=== PATIENT | female | born 1945 | race Caucasian/White ===

== ENCOUNTER 2017-06-23 12:53 | Emergency (ER) | payer OTHER ==
[~2017-06-23] VITALS: Ht 170.1 cm; Wt 89.4 kg
[2017-06-23 14:08] LABS: BASO % 0.1 % (0.0-1.0); EOS # 0.1 10*3/uL (0.0-0.4); EOS % 1.5 % (1.0-4.0); HEMATOCRIT 31.6 % (37.0-47.0); HEMOGLOBIN 9.5 g/dl (12.0-16.0); LYMPH # 3.3 10*3/uL (1.3-4.4); LYMPH % 45.5 % (27.0-41.0); MEAN CELL VOLUME 99.7 fl (81.0-99.0); MEAN CORPUSCULAR HGB CONC 30.1 g/dl (33.0-37.0); MEAN PLATELET VOLUME 11.5 fl (9.6-12.3); MONO # 0.4 10*3/uL (0.1-1.0); NEUT # 3.3 10*3/uL (2.3-7.9); NEUT % 46.6 % (47.0-73.0); NUCLEATED RED BLOOD CELL 0.1 10*3/uL (0.0-0.0); PLATELET COUNT AUTOMATED 315 10*3/uL (130-400); RED BLOOD COUNT 3.17 10*6/uL (4.10-5.10); RED CELL DISTRI WIDTH 19.7 % (0-14.5); WHITE BLOOD COUNT 7.2 10*3/uL (4.8-10.8)
[2017-06-23 14:18] LABS: ACT PARTIAL THROMBO TIME 22.3 SECONDS (20.8-31.5); INTERNATIONAL NORM RATIO 0.9 (2.0-3.5)
[2017-06-23 14:28] LABS: ALBUMIN 2.7 gm/dl (3.1-4.5); ALKALINE PHOSPHATASE 107 U/L (45-117); BUN 7 mg/dl (7-24); CHLORIDE 95 mmol/L (98-107); CREATININE 0.67 mg/dL (0.55-1.02); POTASSIUM 3.9 mmol/L (3.5-5.1); SGOT/AST 13 IU/L (3-35); SGPT/ALT 10 U/L (12-78); SODIUM 133 mmol/L (136-145); TOTAL PROTEIN 7.7 gm/dL (6.4-8.2)
== END 2017-06-23 16:25 | disposition short-term general hospital (02) ==
LOC: ED 12:53
PROVIDERS: Emergency Medicine
DX: T81.31XA Disruption of external operation (surgical) wound, not elsewhere classified, initial encounter (principal); T81.4XXA Infection following a procedure, initial encounter

== ENCOUNTER 2017-07-14 15:12 | Inpatient (IN) | payer OTHER ==
[~2017-07-14] VITALS: Ht 162.5 cm; Wt 80.9 kg
--- NOTE | ~2017-07-14 | CON ---
[place], [place] REPORT OF CONSULTATION NAME: OG SCOTT UNIT #: [id number] ROOM: 504 DOCTOR: LOCO KAY MDDURAN BIRTHDATE: [birth year] DOS: 07/16/2017 CONSULTATION REQUESTED BY: Hospitalist services. REASON FOR CONSULTATION: To assess the patient's current abnormal findings on CT scan of the chest. HISTORY OF PRESENT ILLNESS: A 71-year-old white female known to me from the past. She has a significant complex history from the past. The patient had been admitted at [facility] as the patient tripped over resulting in wound on the back. She had developed significant necrotic wound, also developed gangrene and necrotizing fasciitis. The patient has been treated with several surgeries as well and has a rectal surgery as well as a subsequent colostomy performed as well. She remained in [facility], possibly for couple of months and sent to the local nursing facility for inpatient rehabilitation. As the patient was getting physical therapy, she felt significant dizziness with near syncopal episode. The patient has been sent to the hospital by the EMS. The patient denies any symptoms of coughing, chest pain or shortness of breath at this time. Denies symptoms of hemoptysis. The patient has been known with history of blood pressure and is also low in the nursing facility described in the 50s. The patient has been currently admitted to the hospital for further assessment. She has a CT scan of the head done as well as a CT of the chest done as well on admission. She has been admitted to the hospital on 07/15/2016. REVIEW OF SYSTEMS: CONSTITUTIONAL: She does complain of general weakness, fatigue that persisted. Denies symptoms of fever or chills. EYES: Denies any burning, redness, tenderness or diplopia. EARS, NOSE, THROAT: No symptoms of discharge, earache, postnasal drainage or epistaxis. CARDIOVASCULAR: Denies angina pain, edema or pain of the lower extremities or palpitations. GASTROINTESTINAL: No symptoms of dysphagia, nausea, vomiting, diarrhea, abdominal pain, hematemesis or melena. Reported significant weight loss during the stay at the [facility]. SKIN: Denies any lesions or rashes. MUSCULOSKELETAL: Without any acute deformities. CENTRAL NERVOUS SYSTEM: General weakness and fatigue were noted. Cranial nerves 2-12 intact. Remaining systems were reviewed. They were noted all negative. PAST MEDICAL HISTORY: Reported as: 1. Type 2 diabetes mellitus. 2. Hypothyroidism. 3. Anxiety and depression. 4. Necrotizing fascitis and infected wound in the back and the pelvic area. 5. History of spinal stenosis. 6. Surgical wound dehiscence as well. [place], [place] REPORT OF CONSULTATION NAME: OG SCOTT UNIT #: [id number] ROOM: [facility] DOCTOR: SONIYA SCOTT MDM BIRTHDATE: [birth year] PAST SURGICAL HISTORY: Reported: 1. Oophorectomy. 2. Lumbar fusion. 3. Appendectomy. 4. Colostomy. 5. Complete hysterectomy. 6. History of appendectomy. SOCIAL HISTORY: The patient stated that she is , has no children, lives at home. Nonsmoker lifetime. Denies history of alcohol use or any illicit drugs. FAMILY HISTORY: The patient's father due to complication related to the heart disease at the age of 70 years. The mother at the age 48 due to complication related to the untreated metastatic breast cancer. MEDICATIONS: The medications recorded on admission from the nursing facility were use of aspirin, Colace, Amaryl, lisinopril, Ativan, Percocet, pravastatin, Flomax, Effexor, Coumadin and other p.r.n. medications. DRUG ALLERGIES: Noted for no known drug allergies. PHYSICAL EXAMINATION: GENERAL: This is a 71-year-old female who has been currently noted to be awake and alert, lying in the bed without any acute distress at time of the examination this morning. Her height was recorded 5 feet 4 inches, weight of 178 pounds, BMI 30.6. VITAL SIGNS: Noted as temperature 99.2 degree Fahrenheit to normal temperature, respiratory rate 18-20, heart rate of 111-88, blood pressure 129/65-115/59. Intake is 1820/2.95 L, negative 1120 mL. Pulse oxygen saturation on room air recorded 94% saturation on admission and later on. HEENT: Head was atraumatic. Eyes nonicterus. NECK: Supple. Decreased posterior pharyngeal space, high tongue base. Oral mucosa is moist. CARDIOVASCULAR: S1, S2 audible. LUNGS: Noted clear to auscultation bilaterally. ABDOMEN: Soft. Mild to moderate obesity. Colostomy present. Bowel sounds present. There was no tenderness. GENITOURINARY: Cranial nerves 2-12 intact. No focal deficits. SKIN: No lesions or rashes on visible skin. MUSCULOSKELETAL: Does not show any deformities. LABORATORY DATA: Troponin on 07/14 were noted, all 3 sets negative. The CMP on 07/14; glucose 160, BUN and creatinine was normal, sodium 128, chloride of 93. The remaining electrolytes were normal. ProBNP 576, mildly elevated and WBC count 4.0, hemoglobin 9.1, platelet count was normal. CBC on 07/14; hemoglobin 9.6 and hematocrit 31.6. The remaining CBC was normal. CMP on 07/15; normal BUN and creatinine. Sodium 134. Blood culture from 07/14/2016 does not show any bacterial growth at this time. Preliminary final culture results were pending. BMP this morning; normal BUN and creatinine today, sodium 132, [place], [place] REPORT OF CONSULTATION NAME: OG SCOTT UNIT #: [id number] ROOM: [facility] DOCTOR: SONIYA SCOTT MDM BIRTHDATE: [birth year] chloride 97. The echocardiogram that was done on 07/15/[address] Ridley reported as a normal left ventricle ejection fraction with mild diastolic dysfunction reported. Ejection fraction was described as 70%, was noted with findings of a paulino to white matter differentiation not well delineated in the right hemisphere as compared to the left. This may be related to possibly decrease of acute large infarct. MRI was recommended and clinically indicated as per radiologist's report. The chest x-ray that was done on 07/14/2016 showed widening of the mediastinal. The CT scan of the chest that was done with intravenous contrast on 06/13 on admission was reviewed. There was no evidence of pulmonary embolism noted on the CT scan of the chest. Massive lymphadenopathy was present in the mediastinum as well as in the right peritracheal area with possibility of mass and lesion in the right hilum can be completely excluded as well. Narrowing of the right main stem bronchus and the right lower lobe main stem bronchus was also noted, most likely to current adenopathy. The parenchymal windows of the lungs were reviewed as well and he does not show any discrete pulmonary nodules. There was no past studies available to compare the current problems chronicity. IMPRESSION: 1. 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 2. Recent fall with extensive history resulting in necrotizing fasciitis in the pelvic area with wound dehiscence. The patient current wound management has been continued. 3. Significant body weakness as well. 4. Suspected protein-calorie malnutrition as well. There was no past history of tobacco use reported and there were no findings consistent with either chronic obstructive pulmonary disease or bronchial asthma. 5. History of type 2 diabetes mellitus as well. PLAN AND RECOMMENDATION: The patient has been noted with very complex history that would require immediate workup to make appropriate diagnosis of the current suspected malignancy with a mediastinoscopy as well as to obtain the MRI of the head to rule out metastatic disease to the brain. The patient should be started on appropriate treatment after establishing the confirmatory diagnosis with the tissue biopsy. PLAN OF MANAGEMENT: The patient was recommended about transfer back to the [facility] for further diagnostic workup and management. Continue current medical management of the hyponatremia for the paraneoplastic syndromes as well. Supportive therapy, plan of management to be continued with the other therapy as previously ordered will be continued. Usual care. Other additional treatment plan and management as well. The patient was told about the transfer to another facility and she was agreeable to that. Further management as well as transfer has been discussed with the nurse practitioner, Skyla Bajwa, personally as well. She will be making the arrangement for transfer to the other outlying facility for further appropriate workup [place], [place] REPORT OF CONSULTATION NAME: OG SCOTT UNIT #: [id number] ROOM: 504 DOCTOR: DURAN SCOTT MD BIRTHDATE: [birth year] consideration. Thanks for allowing me to participate in the care of this patient. DURAN ADAN MD CM:CONSTR:REPORT OF CONSULTATION 1300 07/16/17 2311 interface
[2017-07-14 15:20] VITALS: BP 99/33
[2017-07-14 15:24] VITALS: BP 99/33
[2017-07-14] MEDS ORDERED: COUMADIN5 M2 PO (15:36)
[2017-07-14] MEDS ORDERED: ATIVAN1 MG PO (15:37)
[2017-07-14] MEDS ORDERED: ASPIR LOW81 MG PO (15:37)
[2017-07-14] MEDS ORDERED: GOOD SENSE PAI650 M1 PO (15:38)
[2017-07-14] MEDS ORDERED: DULCOLAX STOOL100 MG PO (15:39)
[2017-07-14] MEDS ORDERED: AMARYL2 MG PO (15:40)
[2017-07-14] MEDS ORDERED: LISINOPRIL5 MG PO (15:41)
[2017-07-14] MEDS ORDERED: LIDOCAINE HCL 330 M1 T (15:41)
[2017-07-14] MEDS ORDERED: EFFEXOR-XR150 MG PO (15:42)
[2017-07-14] MEDS ORDERED: PRAVACHOL40 MG PO (15:42)
[2017-07-14] MEDS ORDERED: PERCOCET 5-3251 EACH PO (15:42)
[2017-07-14] MEDS ORDERED: TAMSULOSIN HCL0.4 MG PO (15:43)
[2017-07-14] MEDS ORDERED: SANTYL30 GM T (15:43)
[2017-07-14 16:14] LABS: BASO % 0.3 % (0.0-1.0); EOS # 0.1 10*3/uL (0.0-0.4); EOS % 2.1 % (1.0-4.0); HEMATOCRIT 31.6 % (37.0-47.0); HEMOGLOBIN 9.6 g/dl (12.0-16.0); LYMPH # 1.4 10*3/uL (1.3-4.4); LYMPH % 20.9 % (27.0-41.0); MEAN CELL VOLUME 95.5 fl (81.0-99.0); MEAN CORPUSCULAR HGB CONC 30.4 g/dl (33.0-37.0); MEAN PLATELET VOLUME 11.2 fl (9.6-12.3); MONO # 0.4 10*3/uL (0.1-1.0); MONO % 5.4 % (3.0-9.0); NEUT # 4.8 10*3/uL (2.3-7.9); NEUT % 70.9 % (47.0-73.0); NUCLEATED RED BLOOD CELL 0.3 % (0.0-0.0); PLATELET COUNT AUTOMATED 256 10*3/uL (130-400); RED BLOOD COUNT 3.31 10*6/uL (4.10-5.10); RED CELL DISTRI WIDTH 18.6 % (0-14.5); WHITE BLOOD COUNT 6.8 10*3/uL (4.8-10.8)
[2017-07-14 16:31] LABS: ALKALINE PHOSPHATASE 101 U/L (45-117); BUN 14 mg/dl (7-24); CHLORIDE 93 mmol/L (98-107); CREATININE 0.62 mg/dL (0.55-1.02); LIPASE 152 U/L (73-393); SGOT/AST 9 IU/L (3-35); SGPT/ALT 15 U/L (12-78); SODIUM 128 mmol/L (136-145); TOTAL PROTEIN 7.7 gm/dL (6.4-8.2)
[2017-07-14 16:36] LABS: TROPONIN I < 0.015 ng/ml (<0.045)
[2017-07-14 17:21] LABS: BILIRUBIN NEGATIVE (NEGATIVE); BLOOD 2+ (NEGATIVE); CLARITY SL CLOUDY (CLEAR); COLOR YELLOW (YELLOW); GLUCOSE NEGATIVE (NEGATIVE); KETONE TRACE (NEGATIVE); LEUKO ESTERASE TRACE (NEGATIVE); NITRITE NEGATIVE (NEGATIVE); SPECIFIC GRAVITY 1.015 (1.005-1.030); UROBILINOGEN 0.2 E.U./dl (0.2-1.0)
[2017-07-14 17:35] LABS: HYALINE CAST 41-50
[2017-07-14 17:36] LABS: BACTERIA 3+
[2017-07-14 17:39] LABS: RBC 21-30 rbc/hpf (0-2)
[2017-07-14 20:00] VITALS: BP 100/40
[2017-07-15] VITALS: BP 100/40
[2017-07-15 07:12] LABS: BASO % 0.2 % (0.0-1.0); EOS # 0.1 10*3/uL (0.0-0.4); EOS % 3.5 % (1.0-4.0); HEMATOCRIT 30.8 % (37.0-47.0); HEMOGLOBIN 9.1 g/dl (12.0-16.0); LYMPH # 1.5 10*3/uL (1.3-4.4); LYMPH % 38.2 % (27.0-41.0); MEAN CELL VOLUME 96.9 fl (81.0-99.0); MEAN CORPUSCULAR HGB 28.6 pg (27.0-31.0); MEAN CORPUSCULAR HGB CONC 29.5 g/dl (33.0-37.0); MEAN PLATELET VOLUME 11.6 fl (9.6-12.3); MONO # 0.3 10*3/uL (0.1-1.0); MONO % 8.2 % (3.0-9.0); NEUT % 49.7 % (47.0-73.0); PLATELET COUNT AUTOMATED 254 10*3/uL (130-400); RED BLOOD COUNT 3.18 10*6/uL (4.10-5.10); RED CELL DISTRI WIDTH 18.6 % (0-14.5)
[2017-07-15 07:28] LABS: INTERNATIONAL NORM RATIO 1.1 (2.0-3.5)
[2017-07-15 07:46] LABS: ALBUMIN 2.8 gm/dl (3.1-4.5); ALKALINE PHOSPHATASE 95 U/L (45-117); BUN 9 mg/dl (7-24); CHLORIDE 98 mmol/L (98-107); CHOLESTEROL 184 mg/dL (<200); CREATININE 0.44 mg/dL (0.55-1.02); FREE T4 1.04 ng/dl (0.76-1.46); HDL CHOLESTEROL 39 mg/dl (40-60); LDL CHOLESTEROL 98 mg/dL (9-159); POTASSIUM 3.8 mmol/L (3.5-5.1); SGOT/AST 11 IU/L (3-35); SGPT/ALT 12 U/L (12-78); SODIUM 134 mmol/L (136-145); TOTAL PROTEIN 7.1 gm/dL (6.4-8.2); TRIGLYCERIDES 234 mg/dl (<150); VLDL CHOLESTEROL 47 mg/dL (6-40)
[2017-07-15] MEDS ORDERED: MIRALAX17 GM PO (07:47)
[2017-07-15] MEDS ORDERED: MILK OF MA400 MG/5 M PO (07:47)
[2017-07-15] MEDS ORDERED: ENDOCET 5-3251 EACH PO (07:48)
[2017-07-15] MEDS ORDERED: SENNA8.6 MG PO (07:49)
[2017-07-15 08:00] VITALS: BP 102/74; BP 143/73
[2017-07-15 10:48] LABS: VITAMIN D, 25-HYDROXY 22.2 ng/mL (30-100)
[2017-07-15 12:00] VITALS: BP 129/65
[2017-07-15 16:00] VITALS: BP 119/50
[2017-07-15 20:00] VITALS: BP 112/41
[2017-07-16] VITALS: BP 113/56
[2017-07-16 07:06] LABS: BASO % 0.6 % (0.0-1.0); EOS # 0.1 10*3/uL (0.0-0.4); EOS % 3.4 % (1.0-4.0); HEMATOCRIT 28.9 % (37.0-47.0); HEMOGLOBIN 8.7 g/dl (12.0-16.0); LYMPH # 1.6 10*3/uL (1.3-4.4); LYMPH % 45.7 % (27.0-41.0); MEAN CELL VOLUME 96.3 fl (81.0-99.0); MEAN CORPUSCULAR HGB CONC 30.1 g/dl (33.0-37.0); MEAN PLATELET VOLUME 11.1 fl (9.6-12.3); MONO # 0.3 10*3/uL (0.1-1.0); NEUT # 1.5 10*3/uL (2.3-7.9); PLATELET COUNT AUTOMATED 251 10*3/uL (130-400); RED CELL DISTRI WIDTH 18.6 % (0-14.5); WHITE BLOOD COUNT 3.5 10*3/uL (4.8-10.8)
[2017-07-16 07:31] LABS: ALBUMIN 2.8 gm/dl (3.1-4.5); ALKALINE PHOSPHATASE 92 U/L (45-117); BUN 8 mg/dl (7-24); CHLORIDE 97 mmol/L (98-107); CREATININE 0.44 mg/dL (0.55-1.02); SGOT/AST 7 IU/L (3-35); SGPT/ALT 11 U/L (12-78); SODIUM 132 mmol/L (136-145); TOTAL PROTEIN 6.9 gm/dL (6.4-8.2)
[2017-07-16 08:00] VITALS: BP 119/59
== END 2017-07-16 17:00 | disposition short-term general hospital (02) | DRG 920 ==
LOC: ED 15:12 → 5E 18:33 → EDHOLD 18:33 → 5E 18:44
PROVIDERS: Emergency Medicine; Hospitalist; Registered Nurse
DX: T81.89XA Other complications of procedures, not elsewhere classified, initial encounter (principal); E87.1 Hypo-osmolality and hyponatremia; I95.9 Hypotension, unspecified; E11.65 Type 2 diabetes mellitus with hyperglycemia; R55 Syncope and collapse; E78.00 Pure hypercholesterolemia, unspecified; R59.0 Localized enlarged lymph nodes; E55.9 Vitamin D deficiency, unspecified; I10 Essential (primary) hypertension; M19.90 Unspecified osteoarthritis, unspecified site; F32.9 Major depressive disorder, single episode, unspecified; Z90.721 Acquired absence of ovaries, unilateral; Z90.49 Acquired absence of other specified parts of digestive tract; Z98.1 Arthrodesis status; Z93.3 Colostomy status; Z90.710 Acquired absence of both cervix and uterus; Z82.49 Family history of ischemic heart disease and other diseases of the circulatory system; Z80.3 Family history of malignant neoplasm of breast; Z79.899 Other long term (current) drug therapy; Z79.82 Long term (current) use of aspirin

== ENCOUNTER → 2017-10-22 | Outpatient (CLI) | payer OTHER ==
[~2017-10-22] MED LIST: AMARYL2 MG PO; ASPIR LOW81 MG PO; ATIVAN1 MG PO; COUMADIN5 M2 PO; DULCOLAX STOOL100 MG PO; EFFEXOR-XR150 MG PO; ENDOCET 5-3251 EACH PO; GOOD SENSE PAI650 M1 PO; LIDOCAINE HCL 330 M1 T; LISINOPRIL5 MG PO; MILK OF MA400 MG/5 M PO; MIRALAX17 GM PO; PERCOCET 5-3251 EACH PO; PRAVACHOL40 MG PO; SANTYL30 GM T; SENNA8.6 MG PO; TAMSULOSIN HCL0.4 MG PO
--- NOTE | ~2017-10-22 | PF ---
[place], [place] PULMONARY FUNCTION TEST NAME: OG SCOTT UNIT #: [id number] ROOM: DOCTOR: LOCO KAY MD,DURAN BIRTHDATE: [birth year] DOS: 10/22/2017 HISTORY: The patient recorded as a 72-year-old female, height of 66 inches, weight 179 pounds, BMI 28.9. Testing was ordered by Dr. Giacomo Edgar. The testing was done for the patient with history of Hodgkin lymphoma. The patient has not reported any abnormal respiratory symptoms. There were no past history of tobacco use. SPIROMETRY: The FVC was recorded 2.10 liters, 68% predicted value, mild to moderate decreased. FEV1 was recorded 1.70 liters, 72% predicted value, mildly decreased. The ratio of FEV1/FVC recorded 78% post-bronchodilator. Minimal improvement noted for the patient, but not noted significant improvement after bronchodilators based on the ATS criteria. Flow volume loop was suggestive of mild obstructive airway pattern. The lung volumes, the thoracic gas volume recorded 99%, residual volume of 111%, total lung capacity 85%. The patient's lung diffusion recorded 58% without correction of carbon monoxide or hemoglobin values. The patient's airway resistance and passive conductance noted mildly abnormal, partial improvement post-bronchodilator test. FINAL IMPRESSION: The current test for the patient suggestive of possible diagnosis of mild reversible obstructive lung disease as bronchial asthma would be considered. DURAN ADAN MD CM:PFREPORT:PULMONARY FUNCTION TEST [id number] DURAN KAY MD
== END | disposition home or self-care (01) ==
LOC: CP 12:15
DX: C81.90 Hodgkin lymphoma, unspecified, unspecified site (principal); D64.9 Anemia, unspecified

== ENCOUNTER → 2023-11-17 | Outpatient (CLI) | payer MEDICARE ==
[~2023-11-17] MED LIST changes: +ACID REDUCER15 MG PO; +ATIVAN0.5 MG PO; +CALCIUM500 M1 PO; +LISINOPRIL2.5 MG PO; +MAGNESIUM400 M1 PO; +SEPTDS PO; +VITAMIN D325 MCG PO
[2023-11-17 12:20] LABS: BUN 19 mg/dl (9-23); CHLORIDE 98 mmol/L (98-107); POTASSIUM 4.6 mmol/L (3.4-5.1)
== END | disposition home or self-care (01) ==
LOC: LAB 01:45 → WOUNDCARE 01:45
PROVIDERS: Internal Medicine; ATTEND Nurse Practitioner Family
DX: E87.1 Hypo-osmolality and hyponatremia (principal)

== ENCOUNTER → 2023-11-24 | Outpatient (CLI) | payer MEDICARE | END | disposition home or self-care (01) | LOC: WOUNDCARE 02:01 | PROVIDERS: ATTEND Nurse Practitioner Family | DX: T81.89XD Other complications of procedures, not elsewhere classified, subsequent encounter (principal); E11.622 Type 2 diabetes mellitus with other skin ulcer; L98.422 Non-pressure chronic ulcer of back with fat layer exposed; E11.65 Type 2 diabetes mellitus with hyperglycemia; L02.91 Cutaneous abscess, unspecified; D53.9 Nutritional anemia, unspecified; E78.00 Pure hypercholesterolemia, unspecified; E55.9 Vitamin D deficiency, unspecified; M48.00 Spinal stenosis, site unspecified; M88.9 Osteitis deformans of unspecified bone; M19.90 Unspecified osteoarthritis, unspecified site; E44.0 Moderate protein-calorie malnutrition; F32.A Depression, unspecified; Z68.28 Body mass index [BMI] 28.0-28.9, adult; Z90.710 Acquired absence of both cervix and uterus; Z90.49 Acquired absence of other specified parts of digestive tract; Z79.899 Other long term (current) drug therapy; Y83.8 Other surgical procedures as the cause of abnormal reaction of the patient, or of later complication, without mention of misadventure at the time of the procedure ==

== ENCOUNTER → 2023-12-01 | Outpatient (CLI) | payer MEDICARE | END | disposition home or self-care (01) | LOC: WOUNDCARE 02:26 | PROVIDERS: ATTEND Nurse Practitioner Family | DX: T81.89XD Other complications of procedures, not elsewhere classified, subsequent encounter (principal); E11.622 Type 2 diabetes mellitus with other skin ulcer; L98.422 Non-pressure chronic ulcer of back with fat layer exposed; E11.65 Type 2 diabetes mellitus with hyperglycemia; L02.91 Cutaneous abscess, unspecified; D53.9 Nutritional anemia, unspecified; M48.00 Spinal stenosis, site unspecified; M88.9 Osteitis deformans of unspecified bone; M19.90 Unspecified osteoarthritis, unspecified site; E44.0 Moderate protein-calorie malnutrition; F32.A Depression, unspecified; Z68.28 Body mass index [BMI] 28.0-28.9, adult; Z90.710 Acquired absence of both cervix and uterus; Z90.49 Acquired absence of other specified parts of digestive tract; Z79.899 Other long term (current) drug therapy; Y83.8 Other surgical procedures as the cause of abnormal reaction of the patient, or of later complication, without mention of misadventure at the time of the procedure ==

== ENCOUNTER → 2023-12-09 | Outpatient (CLI) | payer MEDICARE ==
[~2023-12-09] MED LIST changes: -AMARYL2 MG PO; +CETIRIZINE10 MG PO; +GLIMEPIRIDE2 MG PO; +PANTOPRAZOLE SO40 MG PO
== END | disposition home or self-care (01) ==
LOC: WOUNDCARE 00:59
PROVIDERS: ATTEND Nurse Practitioner Family
DX: T81.89XD Other complications of procedures, not elsewhere classified, subsequent encounter (principal); E11.622 Type 2 diabetes mellitus with other skin ulcer; L98.422 Non-pressure chronic ulcer of back with fat layer exposed; E11.65 Type 2 diabetes mellitus with hyperglycemia; L02.91 Cutaneous abscess, unspecified; D53.9 Nutritional anemia, unspecified; M48.00 Spinal stenosis, site unspecified; M88.9 Osteitis deformans of unspecified bone; M19.90 Unspecified osteoarthritis, unspecified site; E44.0 Moderate protein-calorie malnutrition; F32.A Depression, unspecified; Z68.28 Body mass index [BMI] 28.0-28.9, adult; Z90.710 Acquired absence of both cervix and uterus; Z90.49 Acquired absence of other specified parts of digestive tract; Z79.899 Other long term (current) drug therapy; Y83.8 Other surgical procedures as the cause of abnormal reaction of the patient, or of later complication, without mention of misadventure at the time of the procedure

== ENCOUNTER 2023-12-22 12:03 | Emergency (ER) | payer MEDICARE ==
[~2023-12-22] VITALS: Ht 167.6 cm; Wt 78.9 kg
[2023-12-22 12:51] LABS: HEMATOCRIT 24.4 % (37.0-47.0); MEAN CELL VOLUME 105.6 fl (81.0-99.0); MEAN CORPUSCULAR HGB CONC 30.3 g/dl (33.0-37.0); MEAN PLATELET VOLUME 12.4 fl (9.6-12.3); NUCLEATED RED BLOOD CELL 0.1 10*3/uL (0.0-0.0); NUCLEATED RED BLOOD CELL 2.5 % (0.0-0.0); PLATELET COUNT AUTOMATED 170 10*3/uL (130-400); RED BLOOD COUNT 2.31 10*6/uL (4.10-5.10); RED CELL DISTRI WIDTH 26.6 % (0-14.5); WHITE BLOOD COUNT 2.4 10*3/uL (4.8-10.8)
[2023-12-22 12:52] LABS: MANUAL DIFF REFLEX YES
[2023-12-22 13:10] LABS: ALKALINE PHOSPHATASE 85 U/L (46-116); BUN 11 mg/dl (9-23); CHLORIDE 102 mmol/L (98-107); POTASSIUM 4.6 mmol/L (3.4-5.1); TOTAL PROTEIN 6.8 gm/dL (6.0-8.0)
[2023-12-22 13:12] LABS: SGPT/ALT < 7 U/L (5-49)
[2023-12-22 13:38] LABS: TOTAL CELLS COUNTED 100 #CELLS
[2023-12-22 13:39] LABS: OVALOCYTES FEW; PLATELET SUFFICIENCY NORMAL (NORMAL); POLYCHROMASIA SLIGHT; SCHISTOCYTES FEW
== END 2023-12-22 14:39 | disposition home or self-care (01) ==
LOC: ED 12:03
PROVIDERS: Internal Medicine
DX: D64.9 Anemia, unspecified (principal); Z90.49 Acquired absence of other specified parts of digestive tract; Z90.710 Acquired absence of both cervix and uterus; Z98.890 Other specified postprocedural states; Z79.899 Other long term (current) drug therapy

== ENCOUNTER → 2023-12-29 | Outpatient (CLI) | payer MEDICARE | END | disposition home or self-care (01) | LOC: WOUNDCARE 01:28 | PROVIDERS: ATTEND Nurse Practitioner Family | DX: T81.89XD Other complications of procedures, not elsewhere classified, subsequent encounter (principal); E11.622 Type 2 diabetes mellitus with other skin ulcer; L98.421 Non-pressure chronic ulcer of back limited to breakdown of skin; E11.65 Type 2 diabetes mellitus with hyperglycemia; L02.91 Cutaneous abscess, unspecified; D53.9 Nutritional anemia, unspecified; M48.00 Spinal stenosis, site unspecified; M88.9 Osteitis deformans of unspecified bone; M19.90 Unspecified osteoarthritis, unspecified site; E44.0 Moderate protein-calorie malnutrition; F32.A Depression, unspecified; Z68.28 Body mass index [BMI] 28.0-28.9, adult; Z90.710 Acquired absence of both cervix and uterus; Z90.49 Acquired absence of other specified parts of digestive tract; Z79.899 Other long term (current) drug therapy; Y83.8 Other surgical procedures as the cause of abnormal reaction of the patient, or of later complication, without mention of misadventure at the time of the procedure ==

== ENCOUNTER → 2024-01-05 | Outpatient (CLI) | payer MEDICARE | END | disposition home or self-care (01) | LOC: WOUNDCARE 00:11 | PROVIDERS: ATTEND Nurse Practitioner Family | DX: T81.89XD Other complications of procedures, not elsewhere classified, subsequent encounter (principal); E11.622 Type 2 diabetes mellitus with other skin ulcer; L98.421 Non-pressure chronic ulcer of back limited to breakdown of skin; E11.65 Type 2 diabetes mellitus with hyperglycemia; L02.91 Cutaneous abscess, unspecified; D53.9 Nutritional anemia, unspecified; M48.00 Spinal stenosis, site unspecified; M88.9 Osteitis deformans of unspecified bone; M19.90 Unspecified osteoarthritis, unspecified site; E44.0 Moderate protein-calorie malnutrition; F32.A Depression, unspecified; Z68.28 Body mass index [BMI] 28.0-28.9, adult; Z90.710 Acquired absence of both cervix and uterus; Z90.49 Acquired absence of other specified parts of digestive tract; Z79.899 Other long term (current) drug therapy; Y83.8 Other surgical procedures as the cause of abnormal reaction of the patient, or of later complication, without mention of misadventure at the time of the procedure ==

== ENCOUNTER 2024-01-06 09:47 | Emergency (ER) | payer MEDICARE ==
[2024-01-06] VITALS (8 sets, daily range): BP systolic 95–118; BP diastolic 34–51
[~2024-01-06] VITALS: Ht 167.6 cm; Wt 78.9 kg
[2024-01-06 11:51] LABS: MEAN CELL VOLUME 104.1 fl (81.0-99.0); MEAN CORPUSCULAR HGB 31.2 pg (27.0-31.0); MEAN CORPUSCULAR HGB CONC 29.9 g/dl (33.0-37.0); MEAN PLATELET VOLUME 12.8 fl (9.6-12.3); NUCLEATED RED BLOOD CELL 1.3 % (0.0-0.0); PLATELET COUNT AUTOMATED 209 10*3/uL (130-400); RED CELL DISTRI WIDTH 26.3 % (0-14.5); WHITE BLOOD COUNT 2.3 10*3/uL (4.8-10.8)
[2024-01-06 11:52] LABS: MANUAL DIFF REFLEX YES
[2024-01-06 11:57] LABS: HEMATOCRIT 17.7 % (37.0-47.0)
[2024-01-06 12:00] LABS: ACT PARTIAL THROMBO TIME 22.2 SECONDS (20.0-32.1)
[2024-01-06] MEDS ORDERED: FUROSEMIDE 20 MG/2 ML VIAL IV SCH (12:00)
[2024-01-06 12:11] LABS: ALKALINE PHOSPHATASE 85 U/L (46-116); BUN 19 mg/dl (9-23); CHLORIDE 101 mmol/L (98-107); POTASSIUM 4.9 mmol/L (3.4-5.1); TOTAL PROTEIN 6.7 gm/dL (6.0-8.0)
[2024-01-06 12:12] LABS: BASOPHILS 1 % (0-1); OVALOCYTES FEW; PLATELET SUFFICIENCY NORMAL (NORMAL); POLYCHROMASIA SLIGHT; SCHISTOCYTES FEW; SGPT/ALT < 7 U/L (5-49); TOTAL CELLS COUNTED 100 #CELLS
[2024-01-06] MEDS ORDERED: SODIUM CHLORIDE 0.9% 500 ML IV ONE (13:34)
[2024-01-06 18:53] LABS: HEMATOCRIT 23.5 % (37.0-47.0); MEAN CORPUSCULAR HGB 31.6 pg (27.0-31.0); MEAN CORPUSCULAR HGB CONC 32.8 g/dl (33.0-37.0); MEAN PLATELET VOLUME 13.2 fl (9.6-12.3); NUCLEATED RED BLOOD CELL 1.2 % (0.0-0.0); PLATELET COUNT AUTOMATED 221 10*3/uL (130-400); RED BLOOD COUNT 2.44 10*6/uL (4.10-5.10); RED CELL DISTRI WIDTH 22.3 % (0-14.5); WHITE BLOOD COUNT 2.5 10*3/uL (4.8-10.8)
[2024-01-06 19:03] LABS: MANUAL DIFF REFLEX YES; MEAN CELL VOLUME 96.3 fl (81.0-99.0)
[2024-01-06 19:11] LABS: ATYPICAL LYMPHS 2 % (0-0); BASOPHILS 1 % (0-1); TOTAL CELLS COUNTED 100 #CELLS
[2024-01-06 19:12] LABS: OVALOCYTES FEW
[2024-01-06 19:15] LABS: PLATELET SUFFICIENCY NORMAL (NORMAL)
== END 2024-01-06 19:37 | disposition home or self-care (01) ==
LOC: ED 09:47
PROVIDERS: Internal Medicine
DX: D64.9 Anemia, unspecified (principal); Z53.29 Procedure and treatment not carried out because of patient's decision for other reasons; Z85.72 Personal history of non-Hodgkin lymphomas; Z79.899 Other long term (current) drug therapy; Z90.710 Acquired absence of both cervix and uterus; Z90.49 Acquired absence of other specified parts of digestive tract

== ENCOUNTER 2024-01-16 11:52 | Emergency (ER) | payer MEDICARE ==
[~2024-01-16] VITALS: Ht 167.6 cm; Wt 78.9 kg
[2024-01-16 14:36] LABS: HEMATOCRIT 22.8 % (37.0-47.0); MEAN CELL VOLUME 102.2 fl (81.0-99.0); MEAN CORPUSCULAR HGB 31.4 pg (27.0-31.0); MEAN CORPUSCULAR HGB CONC 30.7 g/dl (33.0-37.0); MEAN PLATELET VOLUME 12.9 fl (9.6-12.3); NUCLEATED RED BLOOD CELL 0.1 10*3/uL (0.0-0.0); PLATELET COUNT AUTOMATED 313 10*3/uL (130-400); RED BLOOD COUNT 2.23 10*6/uL (4.10-5.10); RED CELL DISTRI WIDTH 22.8 % (0-14.5); WHITE BLOOD COUNT 4.4 10*3/uL (4.8-10.8)
[2024-01-16] MEDS ORDERED: VITAMIN E100 UNI1 PO (14:36)
[2024-01-16 14:37] LABS: MANUAL DIFF REFLEX YES
[2024-01-16 14:53] LABS: BUN 15 mg/dl (9-23); CHLORIDE 102 mmol/L (98-107)
[2024-01-16 15:09] LABS: TOTAL CELLS COUNTED 100 #CELLS
[2024-01-16 15:10] LABS: OVALOCYTES FEW; PLATELET SUFFICIENCY NORMAL (NORMAL); POLYCHROMASIA SLIGHT
[2024-01-16 17:51] VITALS: BP 108/51
[2024-01-16] MEDS ORDERED: SODIUM CHLORIDE 0.9% 500 ML IV ONE (17:53)
[2024-01-16 18:14] VITALS: BP 129/63
== END 2024-01-16 19:10 | disposition home or self-care (01) ==
LOC: ED 11:52
PROVIDERS: Nurse Practitioner Family
DX: D64.9 Anemia, unspecified (principal); R42 Dizziness and giddiness; E11.9 Type 2 diabetes mellitus without complications; I10 Essential (primary) hypertension; Z90.49 Acquired absence of other specified parts of digestive tract; Z90.710 Acquired absence of both cervix and uterus; Z98.890 Other specified postprocedural states

== ENCOUNTER → 2024-01-19 | Outpatient (CLI) | payer MEDICARE ==
[~2024-01-19] MED LIST changes: +VITAMIN E100 UNI1 PO
== END | disposition home or self-care (01) ==
LOC: WOUNDCARE 03:20
PROVIDERS: ATTEND Nurse Practitioner Family
DX: T81.89XD Other complications of procedures, not elsewhere classified, subsequent encounter (principal); E11.622 Type 2 diabetes mellitus with other skin ulcer; L98.421 Non-pressure chronic ulcer of back limited to breakdown of skin; E11.65 Type 2 diabetes mellitus with hyperglycemia; L02.91 Cutaneous abscess, unspecified; D53.9 Nutritional anemia, unspecified; M48.00 Spinal stenosis, site unspecified; M88.9 Osteitis deformans of unspecified bone; M19.90 Unspecified osteoarthritis, unspecified site; E44.0 Moderate protein-calorie malnutrition; F32.A Depression, unspecified; Z68.28 Body mass index [BMI] 28.0-28.9, adult; Z90.710 Acquired absence of both cervix and uterus; Z90.49 Acquired absence of other specified parts of digestive tract; Z79.899 Other long term (current) drug therapy; Y83.8 Other surgical procedures as the cause of abnormal reaction of the patient, or of later complication, without mention of misadventure at the time of the procedure

== ENCOUNTER 2024-01-30 12:51 | Emergency (ER) | payer MEDICARE ==
[~2024-01-30] VITALS: Ht 167.6 cm; Wt 78.9 kg
[2024-01-30] MEDS ORDERED: SODIUM CHLORIDE 0.9% 1,000 ML IV ONE (13:25)
[2024-01-30 13:51] LABS: MEAN CELL VOLUME 102.6 fl (81.0-99.0); MEAN CORPUSCULAR HGB 31.4 pg (27.0-31.0); MEAN CORPUSCULAR HGB CONC 30.6 g/dl (33.0-37.0); MEAN PLATELET VOLUME 13.5 fl (9.6-12.3); NUCLEATED RED BLOOD CELL 0.8 % (0.0-0.0); PLATELET COUNT AUTOMATED 232 10*3/uL (130-400); RED BLOOD COUNT 1.91 10*6/uL (4.10-5.10); WHITE BLOOD COUNT 2.4 10*3/uL (4.8-10.8)
[2024-01-30 13:55] LABS: HEMATOCRIT 19.6 % (37.0-47.0); MANUAL DIFF REFLEX YES
[2024-01-30 14:10] LABS: BUN 17 mg/dl (9-23); CHLORIDE 103 mmol/L (98-107); POTASSIUM 4.4 mmol/L (3.4-5.1)
[2024-01-30 14:30] LABS: BASOPHILS 2 % (0-1); TOTAL CELLS COUNTED 100 #CELLS
[2024-01-30 14:38] LABS: PLATELET SUFFICIENCY NORMAL (NORMAL)
[2024-01-30] MEDS ORDERED: SODIUM CHLORIDE 0.9% 500 ML IV ONE (14:53)
== END 2024-01-30 16:14 | disposition home or self-care (01) ==
LOC: ED 12:51
PROVIDERS: Emergency Medicine
DX: R53.1 Weakness (principal); D64.9 Anemia, unspecified; E11.9 Type 2 diabetes mellitus without complications; I10 Essential (primary) hypertension; E78.5 Hyperlipidemia, unspecified; Z90.49 Acquired absence of other specified parts of digestive tract; Z90.710 Acquired absence of both cervix and uterus; Z98.890 Other specified postprocedural states; Z79.84 Long term (current) use of oral hypoglycemic drugs; Z79.899 Other long term (current) drug therapy

== ENCOUNTER 2024-02-16 11:52 | Emergency (ER) | payer MEDICARE ==
[~2024-02-16] VITALS: Ht 167.6 cm; Wt 78.9 kg
[2024-02-16] VITALS (14 sets, daily range): BP systolic 11–122; BP diastolic 35–56
[2024-02-16] MEDS ORDERED: SODIUM CHLORIDE 0.9% 1,000 ML IV ONE (12:00)
[2024-02-16 12:23] LABS: MEAN CELL VOLUME 100.6 fl (81.0-99.0); MEAN CORPUSCULAR HGB 31.8 pg (27.0-31.0); MEAN CORPUSCULAR HGB CONC 31.6 g/dl (33.0-37.0); MEAN PLATELET VOLUME 12.9 fl (9.6-12.3); NUCLEATED RED BLOOD CELL 1.9 % (0.0-0.0); PLATELET COUNT AUTOMATED 200 10*3/uL (130-400); RED CELL DISTRI WIDTH 21.4 % (0-14.5); WHITE BLOOD COUNT 2.2 10*3/uL (4.8-10.8)
[2024-02-16 12:29] LABS: HEMATOCRIT 17.1 % (37.0-47.0); MANUAL DIFF REFLEX YES
[2024-02-16 12:34] LABS: ACT PARTIAL THROMBO TIME 23.3 SECONDS (20.0-32.1)
[2024-02-16 12:43] LABS: ALKALINE PHOSPHATASE 108 U/L (46-116); BUN 19 mg/dl (9-23); CHLORIDE 102 mmol/L (98-107); POTASSIUM 4.5 mmol/L (3.4-5.1); SGPT/ALT < 7 U/L (5-49); TOTAL PROTEIN 6.7 gm/dL (6.0-8.0)
[2024-02-16] MEDS ORDERED: FUROSEMIDE 40 MG/4 ML VIAL IV SCH (12:55)
[2024-02-16 13:05] LABS: BASOPHILS 1 % (0-1); TOTAL CELLS COUNTED 100 #CELLS
[2024-02-16 13:06] LABS: PLATELET SUFFICIENCY NORMAL (NORMAL); POLYCHROMASIA MODERATE
[2024-02-16] MEDS ORDERED: SODIUM CHLORIDE 0.9% 500 ML IV ONE (14:20)
[2024-02-16 19:44] LABS: HEMATOCRIT 24.9 % (37.0-47.0); RED BLOOD COUNT 2.68 10*6/uL (4.10-5.10); WHITE BLOOD COUNT 2.9 10*3/uL (4.8-10.8)
[2024-02-16 19:45] LABS: MEAN CELL VOLUME 92.9 fl (81.0-99.0); MEAN CORPUSCULAR HGB 30.6 pg (27.0-31.0); MEAN CORPUSCULAR HGB CONC 32.9 g/dl (33.0-37.0); NUCLEATED RED BLOOD CELL 0.1 10*3/uL (0.0-0.0); NUCLEATED RED BLOOD CELL 2.1 % (0.0-0.0); PLATELET COUNT AUTOMATED 224 10*3/uL (130-400); RED CELL DISTRI WIDTH 19.6 % (0-14.5)
[2024-02-16 19:46] LABS: MANUAL DIFF REFLEX YES
[2024-02-16 19:47] LABS: BASOPHILS 1 % (0-1); TOTAL CELLS COUNTED 100 #CELLS
[2024-02-16 19:48] LABS: PLATELET SUFFICIENCY NORMAL (NORMAL); POLYCHROMASIA SLIGHT
== END 2024-02-16 19:34 | disposition home or self-care (01) ==
LOC: ED 11:52
PROVIDERS: Internal Medicine
DX: D64.9 Anemia, unspecified (principal); Z53.29 Procedure and treatment not carried out because of patient's decision for other reasons; R53.1 Weakness; R06.02 Shortness of breath; E11.9 Type 2 diabetes mellitus without complications; I10 Essential (primary) hypertension; Z90.49 Acquired absence of other specified parts of digestive tract; Z90.710 Acquired absence of both cervix and uterus; Z98.890 Other specified postprocedural states

== ENCOUNTER 2024-03-11 16:00 | Emergency (ER) | payer MEDICARE ==
[2024-03-11] VITALS (8 sets, daily range): BP systolic 90–118; BP diastolic 39–52
[~2024-03-11] VITALS: Ht 167.6 cm; Wt 78.9 kg
[2024-03-11 17:09] LABS: MEAN CELL VOLUME 100.5 fl (81.0-99.0); MEAN CORPUSCULAR HGB 30.1 pg (27.0-31.0); MEAN CORPUSCULAR HGB CONC 29.9 g/dl (33.0-37.0); MEAN PLATELET VOLUME 13.4 fl (9.6-12.3); NUCLEATED RED BLOOD CELL 0.1 10*3/uL (0.0-0.0); NUCLEATED RED BLOOD CELL 3.3 % (0.0-0.0); PLATELET COUNT AUTOMATED 240 10*3/uL (130-400); RED BLOOD COUNT 1.86 10*6/uL (4.10-5.10); RED CELL DISTRI WIDTH 22.2 % (0-14.5); WHITE BLOOD COUNT 2.4 10*3/uL (4.8-10.8)
[2024-03-11 17:12] LABS: HEMATOCRIT 18.7 % (37.0-47.0); MANUAL DIFF REFLEX YES
[2024-03-11 17:23] LABS: BUN 17 mg/dl (9-23); CHLORIDE 103 mmol/L (98-107); POTASSIUM 4.3 mmol/L (3.4-5.1)
[2024-03-11 17:33] LABS: ATYPICAL LYMPHS 1 % (0-0); PLATELET SUFFICIENCY NORMAL (NORMAL); TOTAL CELLS COUNTED 100 #CELLS
[2024-03-11 17:34] LABS: OVALOCYTES FEW
[2024-03-11] MEDS ORDERED: SODIUM CHLORIDE 0.9% 500 ML IV ONE (18:00)
== END 2024-03-12 00:24 | disposition home or self-care (01) ==
LOC: ED 16:00
PROVIDERS: Nurse Practitioner Family
DX: D64.9 Anemia, unspecified (principal); R53.83 Other fatigue; R53.1 Weakness; E87.1 Hypo-osmolality and hyponatremia; F32.A Depression, unspecified; E11.65 Type 2 diabetes mellitus with hyperglycemia; E78.00 Pure hypercholesterolemia, unspecified; I10 Essential (primary) hypertension; Z90.710 Acquired absence of both cervix and uterus; Z90.49 Acquired absence of other specified parts of digestive tract; Z98.890 Other specified postprocedural states

== ENCOUNTER → 2024-03-11 | Outpatient (CLI) | payer MEDICARE ==
[2024-03-11 14:58] LABS: MEAN CELL VOLUME 98.9 fl (81.0-99.0); MEAN CORPUSCULAR HGB CONC 31.4 g/dl (33.0-37.0); MEAN PLATELET VOLUME 12.9 fl (9.6-12.3); NUCLEATED RED BLOOD CELL 0.1 10*3/uL (0.0-0.0); NUCLEATED RED BLOOD CELL 4.2 % (0.0-0.0); PLATELET COUNT AUTOMATED 229 10*3/uL (130-400); RED BLOOD COUNT 1.74 10*6/uL (4.10-5.10); RED CELL DISTRI WIDTH 21.9 % (0-14.5); WHITE BLOOD COUNT 2.2 10*3/uL (4.8-10.8)
[2024-03-11 15:17] LABS: ALKALINE PHOSPHATASE 78 U/L (46-116); BUN 17 mg/dl (9-23); CHLORIDE 101 mmol/L (98-107); LDH 150 U/L (120-246); POTASSIUM 4.3 mmol/L (3.4-5.1); TOTAL PROTEIN 6.5 gm/dL (6.0-8.0)
[2024-03-11 15:18] LABS: SGPT/ALT < 7 U/L (5-49)
[2024-03-11 15:23] LABS: HEMATOCRIT 17.2 % (37.0-47.0); MANUAL DIFF REFLEX YES
[2024-03-11 16:01] LABS: ATYPICAL LYMPHS 1 % (0-0); OVALOCYTES FEW; PLATELET SUFFICIENCY NORMAL (NORMAL); TOTAL CELLS COUNTED 100 #CELLS
[2024-03-11 16:02] LABS: STOMATOCYTE FEW
== END | disposition home or self-care (01) ==
LOC: LAB 13:48
PROVIDERS: ATTEND Internal Medicine Hematology & Oncology
DX: Z51.11 Encounter for antineoplastic chemotherapy (principal); C81.90 Hodgkin lymphoma, unspecified, unspecified site; Z45.2 Encounter for adjustment and management of vascular access device; C81.98 Hodgkin lymphoma, unspecified, lymph nodes of multiple sites; D46.9 Myelodysplastic syndrome, unspecified

== ENCOUNTER → 2024-03-24 | Outpatient (CLI) | payer MEDICARE | LOC: WOUNDCARE 08:15 | PROVIDERS: ATTEND Nurse Practitioner Family | DX: L02.212 Cutaneous abscess of back [any part, except buttock and flank] (principal); E11.622 Type 2 diabetes mellitus with other skin ulcer; L98.422 Non-pressure chronic ulcer of back with fat layer exposed; E11.65 Type 2 diabetes mellitus with hyperglycemia; D53.9 Nutritional anemia, unspecified; I10 Essential (primary) hypertension; E44.0 Moderate protein-calorie malnutrition; E78.00 Pure hypercholesterolemia, unspecified; M48.00 Spinal stenosis, site unspecified; M19.90 Unspecified osteoarthritis, unspecified site; F32.A Depression, unspecified; Z90.49 Acquired absence of other specified parts of digestive tract; Z90.710 Acquired absence of both cervix and uterus ==

== ENCOUNTER → 2024-04-07 | Outpatient (CLI) | payer MEDICARE | END | disposition home or self-care (01) | LOC: WOUNDCARE 01:46 | PROVIDERS: ATTEND Nurse Practitioner Family | DX: L02.212 Cutaneous abscess of back [any part, except buttock and flank] (principal); E11.622 Type 2 diabetes mellitus with other skin ulcer; L98.422 Non-pressure chronic ulcer of back with fat layer exposed; E11.65 Type 2 diabetes mellitus with hyperglycemia; D53.9 Nutritional anemia, unspecified; E78.00 Pure hypercholesterolemia, unspecified; I10 Essential (primary) hypertension; M48.00 Spinal stenosis, site unspecified; M88.9 Osteitis deformans of unspecified bone; M19.90 Unspecified osteoarthritis, unspecified site; E44.0 Moderate protein-calorie malnutrition; F32.A Depression, unspecified; Z68.28 Body mass index [BMI] 28.0-28.9, adult; Z90.49 Acquired absence of other specified parts of digestive tract; Z90.710 Acquired absence of both cervix and uterus; Z79.899 Other long term (current) drug therapy ==

== ENCOUNTER 2024-04-26 14:34 | Emergency (ER) | payer MEDICARE ==
[~2024-04-26] VITALS: Ht 160 cm; Wt 78.9 kg
[2024-04-26] VITALS (10 sets, daily range): BP systolic 111–125; BP diastolic 46–54
[2024-04-26] MEDS ORDERED: FUROSEMIDE 20 MG/2 ML VIAL IV SCH (15:15)
[2024-04-26] MEDS ORDERED: SODIUM CHLORIDE 0.9% 500 ML IV ONE (15:33)
[2024-04-26 15:40] LABS: ACT PARTIAL THROMBO TIME 24.2 SECONDS (20.0-32.1)
[2024-04-26 15:56] LABS: ALKALINE PHOSPHATASE 90 U/L (46-116); BUN 11 mg/dl (9-23); CHLORIDE 100 mmol/L (98-107); POTASSIUM 4.7 mmol/L (3.4-5.1); TOTAL PROTEIN 6.2 gm/dL (6.0-8.0)
[2024-04-26 15:57] LABS: SGPT/ALT < 7 U/L (5-49)
[2024-04-26 16:08] LABS: MEAN CELL VOLUME 93.2 fl (81.0-99.0); MEAN CORPUSCULAR HGB 29.9 pg (27.0-31.0); NUCLEATED RED BLOOD CELL 0.1 10*3/uL (0.0-0.0); NUCLEATED RED BLOOD CELL 2.9 % (0.0-0.0); PLATELET COUNT AUTOMATED 168 10*3/uL (130-400); RED BLOOD COUNT 2.21 10*6/uL (4.10-5.10); RED CELL DISTRI WIDTH 16.8 % (0-14.5); WHITE BLOOD COUNT 3.1 10*3/uL (4.8-10.8)
[2024-04-26 16:10] LABS: MANUAL DIFF REFLEX YES
[2024-04-26 16:11] LABS: HEMATOCRIT 20.6 % (37.0-47.0)
[2024-04-26 16:24] LABS: BASOPHILS 2 % (0-1); PLATELET SUFFICIENCY NORMAL (NORMAL); TOTAL CELLS COUNTED 100 #CELLS
[2024-04-26 16:26] LABS: OVALOCYTES FEW; STOMATOCYTE FEW
[2024-04-26 20:09] LABS: HEMATOCRIT 27.3 % (37.0-47.0); MANUAL DIFF REFLEX YES; MEAN CELL VOLUME 91.3 fl (81.0-99.0); MEAN CORPUSCULAR HGB 29.8 pg (27.0-31.0); MEAN CORPUSCULAR HGB CONC 32.6 g/dl (33.0-37.0); MEAN PLATELET VOLUME 13.4 fl (9.6-12.3); NUCLEATED RED BLOOD CELL 0.1 10*3/uL (0.0-0.0); NUCLEATED RED BLOOD CELL 2.2 % (0.0-0.0); PLATELET COUNT AUTOMATED 185 10*3/uL (130-400); RED BLOOD COUNT 2.99 10*6/uL (4.10-5.10); RED CELL DISTRI WIDTH 16.1 % (0-14.5); WHITE BLOOD COUNT 4.5 10*3/uL (4.8-10.8)
[2024-04-26 20:43] LABS: ATYPICAL LYMPHS 1 % (0-0); BASOPHILS 2 % (0-1); BURR CELLS FEW; OVALOCYTES FEW; PLATELET SUFFICIENCY NORMAL (NORMAL); POLYCHROMASIA SLIGHT; TOTAL CELLS COUNTED 100 #CELLS
== END 2024-04-26 21:10 | disposition home or self-care (01) ==
LOC: ED 14:34
PROVIDERS: Internal Medicine
DX: D64.9 Anemia, unspecified (principal); D72.829 Elevated white blood cell count, unspecified; E11.65 Type 2 diabetes mellitus with hyperglycemia; I10 Essential (primary) hypertension; E78.5 Hyperlipidemia, unspecified; Z90.49 Acquired absence of other specified parts of digestive tract; Z90.710 Acquired absence of both cervix and uterus; Z98.890 Other specified postprocedural states

== ENCOUNTER 2024-05-16 15:13 | Emergency (ER) | payer MEDICARE ==
[~2024-05-16] VITALS: Ht 167.6 cm; Wt 79.8 kg
[2024-05-16] MEDS ORDERED: SODIUM CHLORIDE 0.9% 1,000 ML IV ONE (15:30)
[2024-05-16] MEDS ORDERED: Ondansetron Hydrochloride 4 MG/2 ML VIAL IV ONE (15:35)
[2024-05-16] MEDS ORDERED: HYDROmorphONE Hydrochloride 1 MG/ML SYR IV ONE (15:40)
[2024-05-16 15:42] LABS: HEMATOCRIT 24.8 % (37.0-47.0); MEAN CELL VOLUME 92.2 fl (81.0-99.0); MEAN CORPUSCULAR HGB CONC 31.5 g/dl (33.0-37.0); MEAN PLATELET VOLUME 13.3 fl (9.6-12.3); NUCLEATED RED BLOOD CELL 0.1 10*3/uL (0.0-0.0); NUCLEATED RED BLOOD CELL 1.7 % (0.0-0.0); PLATELET COUNT AUTOMATED 243 10*3/uL (130-400); RED BLOOD COUNT 2.69 10*6/uL (4.10-5.10); RED CELL DISTRI WIDTH 15.4 % (0-14.5); WHITE BLOOD COUNT 4.1 10*3/uL (4.8-10.8)
[2024-05-16 15:47] LABS: MANUAL DIFF REFLEX YES
[2024-05-16 15:58] LABS: ALKALINE PHOSPHATASE 80 U/L (46-116); BUN 16 mg/dl (9-23); CHLORIDE 96 mmol/L (98-107); LIPASE 29 U/L (12-53); POTASSIUM 4.7 mmol/L (3.4-5.1); TOTAL PROTEIN 6.5 gm/dL (6.0-8.0)
[2024-05-16 15:59] LABS: CPK < 15 U/L (34-171); SGPT/ALT < 7 U/L (5-49)
[2024-05-16 16:08] LABS: BASOPHILS 1 % (0-1); TOTAL CELLS COUNTED 100 #CELLS
[2024-05-16 16:09] LABS: PLATELET SUFFICIENCY NORMAL (NORMAL)
[2024-05-16] MEDS ORDERED: INSULIN REGULAR, HUMAN 1 UNIT/0.01 ML IV ONE (16:10)
[2024-05-16 17:41] LABS: BILIRUBIN Negative (Negative); BLOOD Negative (Negative); CLARITY Clear (Clear); COLOR Yellow (Yellow); GLUCOSE 3+ (Negative); KETONE Negative (Negative); LEUKO ESTERASE Negative (Negative); NITRITE Negative (Negative); SPECIFIC GRAVITY 1.015 (1.001-1.030); UROBILINOGEN 0.2 E.U./dl (0.0-1.0)
[2024-05-16 17:48] LABS: URINE AMPHETAMINES Negative (1000ng/ml); URINE BARBITURATES Negative (200ng/ml); URINE BENZODIAZEPINES Negative (200ng/ml); URINE CANNABINOIDS (THC) Negative (50ng/ml); URINE COCAINE Negative (300ng/ml); URINE METHADONE Negative (300ng/ml); URINE OPIATES Negative (300ng/ml); URINE PHENCYCLIDINE Negative (25ng/ml)
[2024-05-16 17:55] LABS: WBC 0-2 wbc/hpf (0-5)
[2024-05-16] MEDS ORDERED: MIRALAX POWDER17 G1 PO (21:39)
== END 2024-05-16 21:08 | disposition home or self-care (01) ==
LOC: ED 15:13
PROVIDERS: Nurse Practitioner Family
DX: K59.00 Constipation, unspecified (principal); Z20.822 Contact with and (suspected) exposure to COVID-19; D53.9 Nutritional anemia, unspecified; R11.0 Nausea; E87.1 Hypo-osmolality and hyponatremia; M19.90 Unspecified osteoarthritis, unspecified site; E11.65 Type 2 diabetes mellitus with hyperglycemia; E78.00 Pure hypercholesterolemia, unspecified; I10 Essential (primary) hypertension; E78.5 Hyperlipidemia, unspecified; Z90.710 Acquired absence of both cervix and uterus; Z98.890 Other specified postprocedural states; Z90.49 Acquired absence of other specified parts of digestive tract; Z79.899 Other long term (current) drug therapy

== ENCOUNTER 2024-05-21 09:05 | Emergency (ER) | payer MEDICARE ==
[~2024-05-21] VITALS: Ht 167.6 cm; Wt 78.9 kg
[~2024-05-21 09:05] MED LIST changes: +MIRALAX POWDER17 G1 PO
[2024-05-21] MEDS ORDERED: SODIUM CHLORIDE 0.9% 1,000 ML IV ONE (09:25)
[2024-05-21 09:54] LABS: MEAN CORPUSCULAR HGB 29.2 pg (27.0-31.0); MEAN PLATELET VOLUME 13.3 fl (9.6-12.3); PLATELET COUNT AUTOMATED 201 10*3/uL (130-400); RED BLOOD COUNT 2.16 10*6/uL (4.10-5.10); RED CELL DISTRI WIDTH 15.5 % (0-14.5); WHITE BLOOD COUNT 3.8 10*3/uL (4.8-10.8)
[2024-05-21 10:04] LABS: ACT PARTIAL THROMBO TIME 23.4 SECONDS (20.0-32.1)
[2024-05-21 10:14] LABS: BUN 8 mg/dl (9-23); CHLORIDE 100 mmol/L (98-107); HEMATOCRIT 20.3 % (37.0-47.0); MANUAL DIFF REFLEX YES; POTASSIUM 4.6 mmol/L (3.4-5.1)
[2024-05-21 10:22] LABS: BASOPHILS 4 % (0-1); PLATELET SUFFICIENCY NORMAL (NORMAL); TOTAL CELLS COUNTED 100 #CELLS
[2024-05-21] MEDS ORDERED: SODIUM CHLORIDE 0.9% 500 ML IV ONE (12:46)
[2024-05-21 12:50] VITALS: BP 95/44
[2024-05-21 13:20] VITALS: BP 84/41
[2024-05-21 13:35] VITALS: BP 96/34
[2024-05-21 13:50] VITALS: BP 99/42
[2024-05-21 14:05] VITALS: BP 88/48
== END 2024-05-21 14:59 | disposition home or self-care (01) ==
LOC: ED 09:05
PROVIDERS: Emergency Medicine
DX: D64.9 Anemia, unspecified (principal); R53.1 Weakness; I10 Essential (primary) hypertension; E78.5 Hyperlipidemia, unspecified; E11.9 Type 2 diabetes mellitus without complications; R10.2 Pelvic and perineal pain; M19.90 Unspecified osteoarthritis, unspecified site; Z90.49 Acquired absence of other specified parts of digestive tract; Z90.710 Acquired absence of both cervix and uterus; Z98.890 Other specified postprocedural states

== ENCOUNTER 2024-05-31 10:22 | Emergency (ER) | payer MEDICARE ==
[~2024-05-31] VITALS: Ht 167.6 cm; Wt 78.9 kg
[2024-05-31] VITALS (12 sets, daily range): BP systolic 106–135; BP diastolic 40–55
[2024-05-31 11:35] LABS: MEAN CORPUSCULAR HGB 29.5 pg (27.0-31.0); MEAN CORPUSCULAR HGB CONC 31.1 g/dl (33.0-37.0); NUCLEATED RED BLOOD CELL 0.1 10*3/uL (0.0-0.0); NUCLEATED RED BLOOD CELL 2.3 % (0.0-0.0); PLATELET COUNT AUTOMATED 184 10*3/uL (130-400); RED CELL DISTRI WIDTH 16.5 % (0-14.5)
[2024-05-31 11:37] LABS: MANUAL DIFF REFLEX YES
[2024-05-31 11:49] LABS: BUN 13 mg/dl (9-23); CHLORIDE 100 mmol/L (98-107); POTASSIUM 4.9 mmol/L (3.4-5.1)
[2024-05-31 11:54] LABS: BASOPHILS 1 % (0-1); TOTAL CELLS COUNTED 100 #CELLS
[2024-05-31 11:55] LABS: OVALOCYTES FEW; PLATELET SUFFICIENCY NORMAL (NORMAL); POLYCHROMASIA SLIGHT
[2024-05-31] MEDS ORDERED: SODIUM CHLORIDE 0.9% 500 ML IV ONE ×2 (13:02→13:15)
== END 2024-05-31 17:01 | disposition home or self-care (01) ==
LOC: ED 10:22
PROVIDERS: Nurse Practitioner Family
DX: D64.9 Anemia, unspecified (principal); R06.00 Dyspnea, unspecified; E11.9 Type 2 diabetes mellitus without complications; I10 Essential (primary) hypertension; E78.5 Hyperlipidemia, unspecified; Z90.710 Acquired absence of both cervix and uterus; Z90.49 Acquired absence of other specified parts of digestive tract; Z98.890 Other specified postprocedural states

== ENCOUNTER 2024-06-26 09:00 | Emergency (ER) | payer MEDICARE ==
[~2024-06-26] VITALS: Ht 167.6 cm; Wt 78.9 kg
[2024-06-26] VITALS (10 sets, daily range): BP systolic 101–125; BP diastolic 39–66
[2024-06-26 09:51] LABS: MEAN CELL VOLUME 91.1 fl (81.0-99.0); MEAN CORPUSCULAR HGB 28.6 pg (27.0-31.0); MEAN CORPUSCULAR HGB CONC 31.4 g/dl (33.0-37.0); MEAN PLATELET VOLUME 12.6 fl (9.6-12.3); NUCLEATED RED BLOOD CELL 0.1 10*3/uL (0.0-0.0); NUCLEATED RED BLOOD CELL 1.7 % (0.0-0.0); PLATELET COUNT AUTOMATED 224 10*3/uL (130-400); RED BLOOD COUNT 1.92 10*6/uL (4.10-5.10); RED CELL DISTRI WIDTH 15.9 % (0-14.5); WHITE BLOOD COUNT 7.1 10*3/uL (4.8-10.8)
[2024-06-26 09:54] LABS: HEMATOCRIT 17.5 % (37.0-47.0); MANUAL DIFF REFLEX YES
[2024-06-26 10:00] LABS: ACT PARTIAL THROMBO TIME 24.6 SECONDS (20.0-32.1)
[2024-06-26 10:08] LABS: ALKALINE PHOSPHATASE 95 U/L (46-116); BUN 13 mg/dl (9-23); CHLORIDE 97 mmol/L (98-107); POTASSIUM 4.6 mmol/L (3.4-5.1); TOTAL PROTEIN 6.5 gm/dL (6.0-8.0)
[2024-06-26 10:09] LABS: SGPT/ALT < 7 U/L (5-49)
[2024-06-26 10:19] LABS: TOTAL CELLS COUNTED 100 #CELLS
[2024-06-26 10:20] LABS: POLYCHROMASIA SLIGHT
[2024-06-26 10:21] LABS: PLATELET SUFFICIENCY NORMAL (NORMAL); VACUOLATION OF NEUTROPHILS SLIGHT
[2024-06-26] MEDS ORDERED: SODIUM CHLORIDE 0.9% 500 ML IV ONE (10:56)
== END 2024-06-26 15:29 | disposition left against medical advice (07) ==
LOC: ED 09:00
PROVIDERS: Internal Medicine
DX: D64.9 Anemia, unspecified (principal); Z20.822 Contact with and (suspected) exposure to COVID-19; Z53.29 Procedure and treatment not carried out because of patient's decision for other reasons; E11.9 Type 2 diabetes mellitus without complications; I10 Essential (primary) hypertension; E78.5 Hyperlipidemia, unspecified; R06.02 Shortness of breath; R53.1 Weakness; Z90.49 Acquired absence of other specified parts of digestive tract; Z90.710 Acquired absence of both cervix and uterus; Z98.890 Other specified postprocedural states

== ENCOUNTER 2024-07-05 11:45 | Emergency (ER) | payer MEDICARE ==
[2024-07-05] VITALS (11 sets, daily range): BP systolic 103–132; BP diastolic 43–67
[~2024-07-05] VITALS: Ht 167.6 cm; Wt 78.9 kg
[2024-07-05 12:26] LABS: MEAN CELL VOLUME 91.2 fl (81.0-99.0); MEAN CORPUSCULAR HGB 28.9 pg (27.0-31.0); MEAN CORPUSCULAR HGB CONC 31.7 g/dl (33.0-37.0); MEAN PLATELET VOLUME 13.2 fl (9.6-12.3); PLATELET COUNT AUTOMATED 257 10*3/uL (130-400); RED BLOOD COUNT 2.28 10*6/uL (4.10-5.10); WHITE BLOOD COUNT 4.1 10*3/uL (4.8-10.8)
[2024-07-05 12:27] LABS: MANUAL DIFF REFLEX YES
[2024-07-05 12:28] LABS: HEMATOCRIT 20.8 % (37.0-47.0)
[2024-07-05 12:43] LABS: BUN 13 mg/dl (9-23); CHLORIDE 96 mmol/L (98-107); POTASSIUM 4.5 mmol/L (3.4-5.1)
[2024-07-05 12:54] LABS: BASOPHILS 1 % (0-1); TOTAL CELLS COUNTED 100 #CELLS
[2024-07-05 12:55] LABS: PLATELET SUFFICIENCY NORMAL (NORMAL); POLYCHROMASIA MODERATE
[2024-07-05] MEDS ORDERED: SODIUM CHLORIDE 0.9% 500 ML IV ONE (13:38)
== END 2024-07-05 17:15 | disposition home or self-care (01) ==
LOC: ED 11:45
PROVIDERS: Nurse Practitioner Family
DX: D64.9 Anemia, unspecified (principal); R06.00 Dyspnea, unspecified; R09.81 Nasal congestion; Z79.84 Long term (current) use of oral hypoglycemic drugs; Z79.899 Other long term (current) drug therapy; Z90.710 Acquired absence of both cervix and uterus; Z90.49 Acquired absence of other specified parts of digestive tract; Z98.890 Other specified postprocedural states

== ENCOUNTER 2024-08-02 10:57 | Emergency (ER) | payer MEDICARE ==
[~2024-08-02] VITALS: Ht 167.6 cm; Wt 78.9 kg
[2024-08-02] VITALS (12 sets, daily range): BP systolic 97–130; BP diastolic 34–58
[2024-08-02 11:23] LABS: MEAN CELL VOLUME 90.4 fl (81.0-99.0); MEAN CORPUSCULAR HGB 28.9 pg (27.0-31.0); MEAN PLATELET VOLUME 13.3 fl (9.6-12.3); NUCLEATED RED BLOOD CELL 1.3 % (0.0-0.0); PLATELET COUNT AUTOMATED 158 10*3/uL (130-400); RED BLOOD COUNT 1.66 10*6/uL (4.10-5.10); RED CELL DISTRI WIDTH 15.1 % (0-14.5); WHITE BLOOD COUNT 2.4 10*3/uL (4.8-10.8)
[2024-08-02 11:32] LABS: ACT PARTIAL THROMBO TIME 26.5 SECONDS (20.0-32.1)
[2024-08-02 11:34] LABS: MANUAL DIFF REFLEX YES
[2024-08-02 11:50] LABS: ALKALINE PHOSPHATASE 125 U/L (46-116); BASOPHILS 2 % (0-1); BUN 16 mg/dl (9-23); CHLORIDE 97 mmol/L (98-107); OVALOCYTES FEW; PLATELET SUFFICIENCY NORMAL (NORMAL); POLYCHROMASIA SLIGHT; TOTAL CELLS COUNTED 100 #CELLS; TOTAL PROTEIN 6.8 gm/dL (6.0-8.0)
[2024-08-02] MEDS ORDERED: SODIUM CHLORIDE 0.9% 500 ML IV ONE (11:50)
[2024-08-02 11:57] LABS: SGPT/ALT < 7 U/L (5-49)
== END 2024-08-02 17:56 | disposition home or self-care (01) ==
LOC: ED 10:57
PROVIDERS: Internal Medicine
DX: D53.9 Nutritional anemia, unspecified (principal); R06.02 Shortness of breath; E11.9 Type 2 diabetes mellitus without complications; I10 Essential (primary) hypertension; E78.5 Hyperlipidemia, unspecified; Z90.710 Acquired absence of both cervix and uterus; Z90.49 Acquired absence of other specified parts of digestive tract; Z98.890 Other specified postprocedural states

== ENCOUNTER 2024-08-10 11:16 | Emergency (ER) | payer MEDICARE ==
[~2024-08-10] VITALS: Ht 167.6 cm; Wt 78.9 kg
[2024-08-10 12:00] LABS: MEAN CORPUSCULAR HGB 28.7 pg (27.0-31.0); MEAN CORPUSCULAR HGB CONC 31.9 g/dl (33.0-37.0); MEAN PLATELET VOLUME 13.1 fl (9.6-12.3); PLATELET COUNT AUTOMATED 212 10*3/uL (130-400); RED CELL DISTRI WIDTH 15.1 % (0-14.5); WHITE BLOOD COUNT 3.6 10*3/uL (4.8-10.8)
[2024-08-10] MEDS ORDERED: Acetaminophen/Hydrocodone 5 MG/325 MG TABLET PO ONE (12:00)
[2024-08-10 12:03] LABS: HEMATOCRIT 20.7 % (37.0-47.0); MANUAL DIFF REFLEX YES
[2024-08-10 12:28] LABS: BUN 13 mg/dl (9-23); CHLORIDE 95 mmol/L (98-107); POTASSIUM 4.4 mmol/L (3.4-5.1)
[2024-08-10 12:51] LABS: PLATELET SUFFICIENCY NORMAL (NORMAL); TOTAL CELLS COUNTED 100 #CELLS
[2024-08-10] MEDS ORDERED: SODIUM CHLORIDE 0.9% 100 ML IV ONE ×2 (13:38→15:45)
== END 2024-08-10 18:23 | disposition home or self-care (01) ==
LOC: ED 11:16
PROVIDERS: Nurse Practitioner Family
DX: D64.9 Anemia, unspecified (principal)

== ENCOUNTER 2024-09-16 11:14 | Emergency (ER) | payer MEDICARE ==
[2024-09-16] VITALS (10 sets, daily range): BP systolic 85–110; BP diastolic 33–51
[~2024-09-16 11:14] MED LIST changes: +ADMELOG100 UNIT/1 SQ; +AMIODARONE HYD200 MG PO; +APAP325 MG PO; +ARTHRITIS PAIN150 GM T; +ATORVASTATIN CA10 M1 PO; +CYCLOBENZAPRINE10 MG PO; +DICLOFENAC SODI50 GM T; +DOXYCYCLINE MO100 MG PO; +ELIQUIS2.5 M1 PO; +Ipratropium Brom3 ML NEB; +LANTUS100 UNIT/1 SC; +LASIX20 MG PO; +LASIX40 MG PO; +OXYGEN NAS; +PREDNISONE10 MG PO; +TAMIFLU 75MG CA75 MG PO; +VITAMIN D350 MC2 PO
[2024-09-16 11:44] LABS: RED CELL DISTRI WIDTH 15.9 % (0-14.5)
[2024-09-16 11:48] LABS: MEAN CELL VOLUME 88.1 fl (81.0-99.0); MEAN CORPUSCULAR HGB 29.2 pg (27.0-31.0); MEAN CORPUSCULAR HGB CONC 33.2 g/dl (33.0-37.0); PLATELET COUNT AUTOMATED 179 10*3/uL (130-400); RED BLOOD COUNT 2.26 10*6/uL (4.10-5.10); WHITE BLOOD COUNT 11.4 10*3/uL (4.8-10.8)
[2024-09-16 11:54] LABS: HEMATOCRIT 19.9 % (37.0-47.0); MANUAL DIFF REFLEX YES
[2024-09-16 12:02] LABS: BUN 32 mg/dl (9-23); CHLORIDE 99 mmol/L (98-107)
[2024-09-16 12:11] LABS: BASOPHILS 1 % (0-1); TOTAL CELLS COUNTED 100 #CELLS
[2024-09-16 12:12] LABS: OVALOCYTES FEW; PLATELET SUFFICIENCY NORMAL (NORMAL); POLYCHROMASIA SLIGHT
[2024-09-16] MEDS ORDERED: SODIUM CHLORIDE 0.9% 500 ML IV ONE ×2 (13:03→15:43)
[2024-09-16] MEDS ORDERED: FUROSEMIDE 20 MG/2 ML VIAL IV SCH (13:45)
[2024-09-16 18:20] LABS: HEMATOCRIT 28.9 % (37.0-47.0); MEAN CORPUSCULAR HGB 28.3 pg (27.0-31.0); MEAN CORPUSCULAR HGB CONC 32.5 g/dl (33.0-37.0); PLATELET COUNT AUTOMATED 176 10*3/uL (130-400); RED BLOOD COUNT 3.32 10*6/uL (4.10-5.10); RED CELL DISTRI WIDTH 15.7 % (0-14.5); WHITE BLOOD COUNT 9.6 10*3/uL (4.8-10.8)
[2024-09-16 18:24] LABS: MANUAL DIFF REFLEX YES
[2024-09-16 19:32] LABS: PLATELET SUFFICIENCY NORMAL (NORMAL); TOTAL CELLS COUNTED 100 #CELLS
[2024-09-16 19:33] LABS: OVALOCYTES FEW
[2024-09-16 19:34] LABS: POLYCHROMASIA SLIGHT
== END 2024-09-16 18:59 | disposition home or self-care (01) ==
LOC: ED 11:14
PROVIDERS: Internal Medicine
DX: D64.9 Anemia, unspecified (principal); Z79.899 Other long term (current) drug therapy; Z79.4 Long term (current) use of insulin; Z79.84 Long term (current) use of oral hypoglycemic drugs; Z90.49 Acquired absence of other specified parts of digestive tract; Z90.710 Acquired absence of both cervix and uterus; Z98.890 Other specified postprocedural states

== ENCOUNTER 2024-09-25 11:26 | Emergency (ER) | payer MEDICARE ==
[~2024-09-25] VITALS: Ht 167.6 cm; Wt 71.2 kg
[2024-09-25] MEDS ORDERED: ACETAMINOPHEN 325 MG TAB PO ONE (11:40)
[2024-09-25 11:55] LABS: HEMATOCRIT 22.4 % (37.0-47.0); MANUAL DIFF REFLEX YES; MEAN CELL VOLUME 87.2 fl (81.0-99.0); MEAN CORPUSCULAR HGB 28.4 pg (27.0-31.0); MEAN CORPUSCULAR HGB CONC 32.6 g/dl (33.0-37.0); MEAN PLATELET VOLUME 13.1 fl (9.6-12.3); NUCLEATED RED BLOOD CELL 0.1 10*3/uL (0.0-0.0); NUCLEATED RED BLOOD CELL 1.1 % (0.0-0.0); PLATELET COUNT AUTOMATED 132 10*3/uL (130-400); RED BLOOD COUNT 2.57 10*6/uL (4.10-5.10); RED CELL DISTRI WIDTH 16.5 % (0-14.5); WHITE BLOOD COUNT 6.6 10*3/uL (4.8-10.8)
[2024-09-25 12:12] LABS: BUN 18 mg/dl (9-23); CHLORIDE 95 mmol/L (98-107); POTASSIUM 3.6 mmol/L (3.4-5.1)
[2024-09-25 12:14] LABS: ATYPICAL LYMPHS 1 % (0-0); BASOPHILS 3 % (0-1); OVALOCYTES FEW; PLATELET SUFFICIENCY NORMAL (NORMAL); POLYCHROMASIA SLIGHT; TOTAL CELLS COUNTED 100 #CELLS
[2024-09-25] MEDS ORDERED: SODIUM CHLORIDE 0.9% 100 ML IV ONE (12:41)
[2024-09-25 12:55] VITALS: BP 100/40
[2024-09-25 13:13] VITALS: BP 95/43
[2024-09-25 13:28] VITALS: BP 90/41
[2024-09-25 13:43] VITALS: BP 95/42
[2024-09-25 15:02] VITALS: BP 100/42
== END 2024-09-25 15:50 | disposition home or self-care (01) ==
LOC: ED 11:26
PROVIDERS: Emergency Medicine
DX: D64.9 Anemia, unspecified (principal); R53.1 Weakness; E11.9 Type 2 diabetes mellitus without complications; I11.0 Hypertensive heart disease with heart failure; I50.9 Heart failure, unspecified; E78.5 Hyperlipidemia, unspecified; Z90.49 Acquired absence of other specified parts of digestive tract; Z90.710 Acquired absence of both cervix and uterus; Z98.890 Other specified postprocedural states

== ENCOUNTER 2024-09-27 12:25 | Emergency (ER) | payer MEDICARE ==
[~2024-09-27] VITALS: Ht 167.6 cm; Wt 80.5 kg
[2024-09-27] MEDS ORDERED: ACETAMINOPHEN 325 MG TAB PO ONE (12:50)
[2024-09-27 13:14] LABS: HEMATOCRIT 22.7 % (37.0-47.0); MEAN CELL VOLUME 88.3 fl (81.0-99.0); MEAN CORPUSCULAR HGB 28.4 pg (27.0-31.0); MEAN CORPUSCULAR HGB CONC 32.2 g/dl (33.0-37.0); MEAN PLATELET VOLUME 12.7 fl (9.6-12.3); NUCLEATED RED BLOOD CELL 0.1 10*3/uL (0.0-0.0); NUCLEATED RED BLOOD CELL 1.8 % (0.0-0.0); PLATELET COUNT AUTOMATED 103 10*3/uL (130-400); RED BLOOD COUNT 2.57 10*6/uL (4.10-5.10); RED CELL DISTRI WIDTH 16.5 % (0-14.5); WHITE BLOOD COUNT 6.2 10*3/uL (4.8-10.8)
[2024-09-27 13:23] LABS: ACT PARTIAL THROMBO TIME 27.1 SECONDS (20.0-32.1)
[2024-09-27 13:34] LABS: ALKALINE PHOSPHATASE 63 U/L (46-116); BUN 13 mg/dl (9-23); CHLORIDE 97 mmol/L (98-107); POTASSIUM 3.6 mmol/L (3.4-5.1); SGPT/ALT 12 U/L (5-49); TOTAL PROTEIN 5.9 gm/dL (6.0-8.0)
[2024-09-27] MEDS ORDERED: POTASSIUM CHLORIDE 20 MEQ TAB PO ONE (13:40)
[2024-09-27] MEDS ORDERED: MAGNESIUM OXIDE 400 MG TAB PO ONE (13:40)
[2024-09-27] MEDS ORDERED: INSULIN REGULAR, HUMAN 1 UNIT/0.01 ML IV ONE (13:40)
[2024-09-27 13:41] LABS: MANUAL DIFF REFLEX YES
[2024-09-27 13:47] LABS: BASOPHILS 2 % (0-1); TOTAL CELLS COUNTED 100 #CELLS
[2024-09-27 13:48] LABS: PLATELET SUFFICIENCY LOW (NORMAL)
[2024-09-27 13:50] LABS: TOXIC GRANULATION SLIGHT
== END 2024-09-27 14:45 | disposition home or self-care (01) ==
LOC: ED 12:25
PROVIDERS: Internal Medicine
DX: I95.9 Hypotension, unspecified (principal); E86.1 Hypovolemia; D64.9 Anemia, unspecified; E11.9 Type 2 diabetes mellitus without complications; I10 Essential (primary) hypertension; R10.2 Pelvic and perineal pain; E78.5 Hyperlipidemia, unspecified; Z90.49 Acquired absence of other specified parts of digestive tract; Z90.710 Acquired absence of both cervix and uterus; Z98.890 Other specified postprocedural states

== ENCOUNTER 2024-10-04 15:48 | Observation (INO) | payer MEDICARE ==
[2024-10-04] VITALS (18 sets, daily range): BP systolic 97–112; BP diastolic 38–78
[~2024-10-04] VITALS: Ht 167.6 cm; Wt 75.4 kg
[2024-10-04 16:27] LABS: MEAN CELL VOLUME 90.3 fl (81.0-99.0); MEAN CORPUSCULAR HGB 28.6 pg (27.0-31.0); MEAN CORPUSCULAR HGB CONC 31.7 g/dl (33.0-37.0); MEAN PLATELET VOLUME 13.5 fl (9.6-12.3); NUCLEATED RED BLOOD CELL 0.1 10*3/uL (0.0-0.0); NUCLEATED RED BLOOD CELL 3.1 % (0.0-0.0); PLATELET COUNT AUTOMATED 99 10*3/uL (130-400); RED BLOOD COUNT 1.85 10*6/uL (4.10-5.10); RED CELL DISTRI WIDTH 16.6 % (0-14.5); WHITE BLOOD COUNT 3.2 10*3/uL (4.8-10.8)
[2024-10-04 16:35] LABS: HEMATOCRIT 16.7 % (37.0-47.0); MANUAL DIFF REFLEX YES
[2024-10-04 16:41] LABS: BUN 20 mg/dl (9-23); CHLORIDE 97 mmol/L (98-107); POTASSIUM 3.9 mmol/L (3.4-5.1)
[2024-10-04 17:11] LABS: ATYPICAL LYMPHS 1 % (0-0); TOTAL CELLS COUNTED 100 #CELLS
[2024-10-04 17:12] LABS: STOMATOCYTE FEW
[2024-10-04 17:13] LABS: PLATELET SUFFICIENCY LOW (NORMAL)
[2024-10-04] MEDS ORDERED: ACETAMINOPHEN 325 MG TAB PO PRN (17:15)
[2024-10-04] MEDS ORDERED: ACETAMINOPHEN 650 MG SUPP R PRN (17:15)
[2024-10-04] MEDS ORDERED: BISACODYL 10 MG SUPP R PRN (17:15)
[2024-10-04] MEDS ORDERED: Magnesium Hydroxide 30 ML UDC PO PRN (17:15)
[2024-10-04] MEDS ORDERED: BISACODYL 5 MG TAB PO PRN (17:15)
[2024-10-04] MEDS ORDERED: Ondansetron Hydrochloride 4 MG/2 ML VIAL IV PRN (17:15)
[2024-10-04] MEDS ORDERED: DEXTROSE 10 % IN WATER 250 ML IV PRN (17:50)
[2024-10-04] MEDS ORDERED: SODIUM CHLORIDE 0.9% 500 ML IV ONE ×2 (19:47→22:55)
[2024-10-04] MEDS ORDERED: ATORVASTATIN CA40 M1 PO (21:18)
[2024-10-04] MEDS ORDERED: VENLAFAXINE H37.5 M5 PO (21:21)
[2024-10-04] MEDS ORDERED: LORAZEPAM0.5 M1 PO (21:22)
[2024-10-04] MEDS ORDERED: INSULIN LISPRO 1 UNIT/0.01 ML SQ SCH (22:00)
[2024-10-04] MEDS ORDERED: FUROSEMIDE 20 MG/2 ML VIAL IV SCH (23:30)
[2024-10-04] MEDS ORDERED: Albuterol Sulf/Ipratropium 3 ML VIAL NEB PRN (23:35)
[2024-10-05] VITALS (7 sets, daily range): BP systolic 101–116; BP diastolic 43–50
[2024-10-05] MEDS ORDERED: LORazepam 0.5 MG TAB PO ONE (00:25)
[2024-10-05 06:41] LABS: ALKALINE PHOSPHATASE 122 U/L (46-116); BUN 15 mg/dl (9-23); CHLORIDE 99 mmol/L (98-107); POTASSIUM 4.7 mmol/L (3.4-5.1)
[2024-10-05 06:42] LABS: HEMATOCRIT 21.3 % (37.0-47.0); MEAN CELL VOLUME 88.4 fl (81.0-99.0); MEAN CORPUSCULAR HGB CONC 32.9 g/dl (33.0-37.0); MEAN PLATELET VOLUME 13.6 fl (9.6-12.3); NUCLEATED RED BLOOD CELL 0.1 10*3/uL (0.0-0.0); NUCLEATED RED BLOOD CELL 2.7 % (0.0-0.0); PLATELET COUNT AUTOMATED 91 10*3/uL (130-400); RED BLOOD COUNT 2.41 10*6/uL (4.10-5.10); RED CELL DISTRI WIDTH 15.9 % (0-14.5); WHITE BLOOD COUNT 3.7 10*3/uL (4.8-10.8)
[2024-10-05 06:44] LABS: MANUAL DIFF REFLEX YES; SGPT/ALT < 7 U/L (5-49)
[2024-10-05 07:28] LABS: BASOPHILS 1 % (0-1); POLYCHROMASIA SLIGHT; TOTAL CELLS COUNTED 100 #CELLS
[2024-10-05 07:29] LABS: OVALOCYTES FEW; PLATELET SUFFICIENCY LOW (NORMAL)
[2024-10-05] MEDS ORDERED: MAGNESIUM SULFATE 100 ML IV ONE (08:10)
[2024-10-05] MEDS ORDERED: AMMONIUM LACTATE 12% LOTION T SCH (09:45)
[2024-10-05] MEDS ORDERED: LORazepam 0.5 MG TAB PO SCH ×3 (10:00→23:55)
[2024-10-05] MEDS ORDERED: Venlafaxine Hydrochloride 37.5 MG CAP PO SCH (10:00)
[2024-10-05] MEDS ORDERED: Insulin Glargine, Recombinan 1 UNIT/0.01 ML SC SCH (10:00)
[2024-10-05] MEDS ORDERED: Amiodarone Hydrochloride 200 MG TAB PO SCH (10:00)
[2024-10-05] MEDS ORDERED: ATORVASTATIN CALCIUM 40 MG TABLET PO SCH (22:00)
== END 2024-10-05 14:15 | disposition home or self-care (01) ==
LOC: ED 15:48 → 5E 16:52 → EDHOLD 16:52 → 5E 19:16
PROVIDERS: Emergency Medicine; Student in an Organized Health Care Education/Training Program; ADMIT Internal Medicine; ATTEND Internal Medicine
DX: D64.9 Anemia, unspecified (principal); R06.02 Shortness of breath; I95.9 Hypotension, unspecified; R26.2 Difficulty in walking, not elsewhere classified; D61.818 Other pancytopenia; I10 Essential (primary) hypertension; E11.65 Type 2 diabetes mellitus with hyperglycemia; F32.9 Major depressive disorder, single episode, unspecified; C85.90 Non-Hodgkin lymphoma, unspecified, unspecified site; E87.1 Hypo-osmolality and hyponatremia; I50.9 Heart failure, unspecified; F41.9 Anxiety disorder, unspecified; Z79.899 Other long term (current) drug therapy; Z90.49 Acquired absence of other specified parts of digestive tract; Z90.710 Acquired absence of both cervix and uterus

== ENCOUNTER 2024-10-12 09:35 | Emergency (ER) | payer MEDICARE ==
[2024-10-12] VITALS (12 sets, daily range): BP systolic 99–127; BP diastolic 46–57
[~2024-10-12] VITALS: Ht 167.6 cm; Wt 78.9 kg
[~2024-10-12 09:35] MED LIST changes: +ATORVASTATIN CA40 M1 PO; +LORAZEPAM0.5 M1 PO; +VENLAFAXINE H37.5 M5 PO
[2024-10-12 10:13] LABS: MEAN CELL VOLUME 89.6 fl (81.0-99.0); MEAN CORPUSCULAR HGB 28.5 pg (27.0-31.0); MEAN CORPUSCULAR HGB CONC 31.8 g/dl (33.0-37.0); MEAN PLATELET VOLUME 13.1 fl (9.6-12.3); NUCLEATED RED BLOOD CELL 0.3 % (0.0-0.0); PLATELET COUNT AUTOMATED 134 10*3/uL (130-400); RED BLOOD COUNT 1.93 10*6/uL (4.10-5.10); RED CELL DISTRI WIDTH 16.6 % (0-14.5)
[2024-10-12 10:16] LABS: HEMATOCRIT 17.3 % (37.0-47.0); MANUAL DIFF REFLEX YES
[2024-10-12 10:31] LABS: BUN 18 mg/dl (9-23); CHLORIDE 99 mmol/L (98-107); POTASSIUM 4.1 mmol/L (3.4-5.1)
[2024-10-12 10:38] LABS: TOTAL CELLS COUNTED 100 #CELLS
[2024-10-12 10:39] LABS: PLATELET SUFFICIENCY NORMAL (NORMAL); POLYCHROMASIA SLIGHT
[2024-10-12] MEDS ORDERED: SODIUM CHLORIDE 0.9% 500 ML IV ONE (10:52)
== END 2024-10-12 17:00 | disposition home or self-care (01) ==
LOC: ED 09:35
PROVIDERS: Nurse Practitioner Family
DX: D64.9 Anemia, unspecified (principal); I10 Essential (primary) hypertension; E11.9 Type 2 diabetes mellitus without complications; Z79.899 Other long term (current) drug therapy; Z90.49 Acquired absence of other specified parts of digestive tract; Z90.710 Acquired absence of both cervix and uterus; Z90.89 Acquired absence of other organs; Z98.890 Other specified postprocedural states